=== PATIENT | female | born 1995 | race Caucasian/White ===

== ENCOUNTER 2018-06-08 09:08 | Outpatient (CLI) | payer OTHER ==
[~2018-06-08] VITALS: Ht 149.9 cm; Wt 60.0 kg
== END 2018-06-08 09:48 | disposition home or self-care (01) ==
LOC: LDOP 09:08
PROVIDERS: ATTEND Obstetrics & Gynecology
DX: O36.8130 Decreased fetal movements, third trimester, not applicable or unspecified (principal); O46.93 Antepartum hemorrhage, unspecified, third trimester; Z3A.39 39 weeks gestation of pregnancy
CPT/HCPCS: 59025; 99201; G0463

== ENCOUNTER 2018-06-10 20:59 | Inpatient (IN) | payer OTHER ==
[~2018-06-10] VITALS: Ht 149.9 cm; Wt 60.0 kg
[2018-06-10] MEDS ORDERED: D5%-LACTATED RINGERS 1,000 ML IV SCH (21:18)
[2018-06-10] MEDS ORDERED: OXYTOCIN 30U/ 0.9% NaCL 500ML 500 ML IV ONE (21:18)
[2018-06-10] MEDS ORDERED: FENTANYL PF 100 MCG/2ML IVPush PRN (21:30)
[2018-06-10] MEDS ORDERED: TERBUTALINE 1 MG/ML, 1ML IVPush PRN (21:30)
[2018-06-10] MEDS ORDERED: CALCIUM CARBONATE 500 MG TAB.CHEW PO PRN (21:30)
[2018-06-10] MEDS ORDERED: ONDANSETRON 2MG/ML, 2ML IVPush PRN ×2 (21:30→23:30)
[2018-06-10] MEDS ORDERED: FENTANYL PF 100 MCG/2ML IV PRN (21:30)
[2018-06-10] MEDS: LACTATED RINGERS 1,000 ML IV SCH ×2 (21:35→21:59)
[2018-06-10] MEDS ORDERED: NEWBORN KIT ONE (21:36)
[2018-06-10] MEDS ORDERED: FENTANYL PF 100 MCG/2ML ONE ×2 (21:37→22:42)
[2018-06-10] MEDS ORDERED: OXYTOCIN 30U/ 0.9% NaCL 500ML 500 ML ONE (21:37)
[2018-06-10 21:48] LABS: BASOPHILS # (AUTO) 0.03 x10^3/uL (0-0.1); BASOPHILS % (AUTO) 0 % (0-1); EOSINOPHILS # (AUTO) 0.04 x10^3/uL (0-0.4); EOSINOPHILS % (AUTO) 0 % (1-7); LYMPHOCYTES # (AUTO) 1.57 x10^3/uL (1-3.4); LYMPHOCYTES % (AUTO) 13 % (22-44); MD NO; MEAN CORPUSCULAR HEMOGLOBIN 31.2 pg (27.0-34.8); MEAN CORPUSCULAR HGB CONC 34.3 g/dL (32.4-35.8); MEAN PLATELET VOLUME 7.2 fL (7.4-10.4); MONOCYTES # (AUTO) 1.14 x10^3/uL (0.2-0.8); MONOCYTES % (AUTO) 9 % (2-9); NEUTROPHILS # (AUTO) 9.39 x10^3/uL (1.8-6.8); NEUTROPHILS % (AUTO) 77 % (42-75); PLATELET COUNT 211 x10^3/uL (130-400); RED BLOOD COUNT 3.91 x10^6/uL (3.82-5.3); RED CELL DISTRIBUTION WIDTH 14.6 % (9.6-15.2)
[2018-06-10] MEDS ORDERED: FENTANYL/BUPIV./NS/PF 250 ML EPIDCONT SCH ×2 (21:51→23:10)
[2018-06-10] MEDS ORDERED: FENTANYL PF 500 MCG, BUPIVACAINE/PF 0.5%, 30ML 62.5 ML in SODIUM CHLORIDE 0.9% 177.5 ML EPIDCONT SCH (22:00)
[2018-06-10] MEDS ORDERED: BUPIVACAINE 0.25% ONE (22:42)
[2018-06-10] MEDS ORDERED: LACTATED RINGERS 1,000 ML IV SCH (23:10)
[2018-06-10] MEDS ORDERED: LACTATED RINGERS 1,000 ML IVBOLUS PRN (23:30)
[2018-06-10] MEDS ORDERED: EPHEDRINE 50 MG/ML, 1ML IVPush PRN (23:30)
[2018-06-11 07:35] VITALS: BP 106/59
[2018-06-11] MEDS ORDERED: MISOPROSTOL 200 MCG TABLET ONE (10:03)
[2018-06-11] MEDS ORDERED: LIDOCAINE 1%, 50ML ONE (10:03)
[2018-06-11] MEDS: OXYTOCIN 30U/ 0.9% NaCL 500ML 500 ML IV SCH ×2 (12:16→13:42)
[2018-06-11] MEDS ORDERED: DIPH,PERTUSS(ACELL),TET VAC/PF NC IM-VACC PRN (13:00)
[2018-06-11] MEDS ORDERED: RHOGAM FROM BLOOD BANK 1 NOTE EA IM/IV ONE (13:00)
[2018-06-11] MEDS ORDERED: CALCIUM CARBONATE 500 MG TAB.CHEW PO PRN (13:00)
[2018-06-11] MEDS ORDERED: OXYcodone IR 5MG TABLET PO PRN (13:00)
[2018-06-11] MEDS ORDERED: ONDANSETRON 2MG/ML, 2ML IV PRN (13:00)
[2018-06-11] MEDS ORDERED: MAGNESIUM HYDROXIDE 8%, 30ML UDC PO PRN (13:00)
[2018-06-11] MEDS ORDERED: MEASLES,MUMPS&RUBELLA VACC/PF 0.5 ML SQ PRN (13:00)
[2018-06-11] MEDS ORDERED: MISOPROSTOL 200 MCG TABLET PR PRN (13:00)
[2018-06-11] MEDS ORDERED: OXYcodone/APAP 5/325MG TABLET PO PRN (13:00)
[2018-06-11] MEDS ORDERED: OXYTOCIN 30U/ 0.9% NaCL 500ML 500 ML ONE (13:37)
[2018-06-11 14:45] VITALS: BP 106/67
[2018-06-11 19:15] VITALS: BP 104/66
[2018-06-11 21:05] LABS: BASOPHILS # (AUTO) 0.01 x10^3/uL (0-0.1); BASOPHILS % (AUTO) 0 % (0-1); EOSINOPHILS % (AUTO) 0 % (1-7); LYMPHOCYTES # (AUTO) 1.33 x10^3/uL (1-3.4); LYMPHOCYTES % (AUTO) 8 % (22-44); MD NO; MEAN CORPUSCULAR HEMOGLOBIN 31.5 pg (27.0-34.8); MEAN CORPUSCULAR HGB CONC 34.2 g/dL (32.4-35.8); MEAN CORPUSCULAR VOLUME 91.9 fL (80-100); MEAN PLATELET VOLUME 7.3 fL (7.4-10.4); MONOCYTES # (AUTO) 1.16 x10^3/uL (0.2-0.8); MONOCYTES % (AUTO) 7 % (2-9); NEUTROPHILS # (AUTO) 14.02 x10^3/uL (1.8-6.8); NEUTROPHILS % (AUTO) 85 % (42-75); PLATELET COUNT 175 x10^3/uL (130-400); RED BLOOD COUNT 3.46 x10^6/uL (3.82-5.3); RED CELL DISTRIBUTION WIDTH 14.9 % (9.6-15.2)
[2018-06-11 23:30] VITALS: BP 98/64
[2018-06-12] MEDS: IBUPROFEN 600 MG TABLET PO PRN ×4 (03:44→23:10)
[2018-06-12 04:10] VITALS: BP 95/60
[2018-06-12 07:15] VITALS: BP 97/63
[2018-06-12] MEDS: PRENATAL VIT/IRON/FA 1 EACH TABLET PO SCH (09:15)
[2018-06-12] MEDS: DOCUSATE 100 MG CAPSULE PO PRN ×2 (09:15→23:10)
[2018-06-12] MEDS: OXYTOCIN 30U/ 0.9% NaCL 500ML 500 ML IV SCH ×2 (09:37→17:33)
[2018-06-12 11:54] VITALS: BP 108/72
[2018-06-12 20:20] VITALS: BP 99/65
[2018-06-13] MEDS: OXYTOCIN 30U/ 0.9% NaCL 500ML 500 ML IV SCH (04:34)
[2018-06-13] MEDS: IBUPROFEN 600 MG TABLET PO PRN (05:38)
[2018-06-13 08:42] VITALS: BP 103/69
[2018-06-13] MEDS: PRENATAL VIT/IRON/FA 1 EACH TABLET PO SCH (08:59)
[2018-06-13] MEDS: DOCUSATE 100 MG CAPSULE PO PRN (08:59)
[2018-06-13] MEDS ORDERED: IBUP-1222 PO (10:43)
[2018-06-13] MEDS ORDERED: DOCU-131 PO (10:44)
== END 2018-06-13 11:40 | disposition home or self-care (01) | DRG 775 ==
LOC: LDOP 20:59 → LDIP 21:26 → 2NW 06-11 14:24
PROVIDERS: ADMIT Obstetrics & Gynecology; ATTEND Obstetrics & Gynecology
PROC: 10E0XZZ Delivery of Products of Conception, External Approach (ICD-10-PCS; principal; 2018-06-11)
PROC: 0KQM0ZZ Repair Perineum Muscle, Open Approach (ICD-10-PCS; 2018-06-11)
PROC: 3E0R3BZ Introduction of Anesthetic Agent into Spinal Canal, Percutaneous Approach (ICD-10-PCS; 2018-06-11)
PROC: 00HU33Z Insertion of Infusion Device into Spinal Canal, Percutaneous Approach (ICD-10-PCS; 2018-06-11)
PROC: 10H07YZ Insertion of Other Device into Products of Conception, Via Natural or Artificial Opening (ICD-10-PCS; 2018-06-11)
DX: O34.83 Maternal care for other abnormalities of pelvic organs, third trimester (principal); O70.1 Second degree perineal laceration during delivery; N89.6 Tight hymenal ring; Z37.0 Single live birth; Z3A.39 39 weeks gestation of pregnancy
CPT/HCPCS: 36415; J7121; 82803; 85025; 86850; 86900; J3010; J2590; J7120